=== PATIENT | male | born 1970 | race Caucasian/White ===

== ENCOUNTER 2016-10-06 11:40 | Emergency (ER) | payer OTHER ==
--- NOTE | ~2016-10-06 | CR63 ---
[facility] A Service of [facility] & [facility] RADIOLOGY TEXT RESULTS PATIENT: MARCELLA BARBOSA LOCATION: SED : 72 UNIT #: [id number] AGE: [address]: ANNE THURMAN SEX: M ORDER DR: [id number] [place] [id number] E MR#: [id number] Acc #: [id number] NAME: MARCELLA BARBOSA. : 1970 SEX: M STUDY DATE/TIME: 10/06/2016 12:19 UNIT: SED ROOM: STUDY DESCRIPTION: CR Chest 2 View Attending Physician: Anne Thurman Aprn Ordering Physician: Anne Thurman Aprn Primary Care Physician: No Primary Care Physician MEDICAL IMAGING REPORT This report is preliminary unless electronic signature is present. EXAM Chest, PA and lateral; 10/06/2016. HISTORY Shortness of breath and back pain beginning 1 day ago. Pain under left shoulder blade. FINDINGS The heart is normal in size. There is elevation of the right hemidiaphragm with atelectasis at the right lung base. Lungs are otherwise clear. There are no pleural effusions. IMPRESSION No active pulmonary disease. Dictated by... Kenji Azar M.D. THIS IS AN ELECTRONICALLY VERIFIED REPORT Kenji Azar M.D. at 10/07/2016 6:27 AM TRINIDAD/anjali TD: 10/06/2016 15:42 JOB #: [id number] MEDICAL IMAGING REPORT Page 1 of 1
--- NOTE | ~2016-10-06 | EKG ---
PATIENT: MARCELLA BARBOSA UNIT #: [id number] Ventricular Rate: 80 BPM Atrial Rate: 80 BPM P-R Interval: 124 ms QRS Duration: 86 ms Q-T Interval: 354 ms QTC Calculation(Bezet): 408 ms P [place]: 66 degrees Calculated R [place]: 54 degrees Calculated T [place]: 27 degrees Diagnosis Line: Normal sinus rhythm Diagnosis Line: Normal ECG Diagnosis Line: No previous ECGs available Diagnosis Line: Confirmed by SON DOS SANTOS MD ([id number]) on Diagnosis Line: 10/09/2016 8:36:05 AM INTERPRETING MD: LEVON DUEÑAS
[~2016-10-06 11:40] MED LIST: ANIMAL SHAPES1 EAC2 PO; [UNRECOGNIZED DRUG - REMARK]
== END 2016-10-06 12:46 | disposition home or self-care (01) ==
LOC: SED 11:40
DX: S29.012A Strain of muscle and tendon of back wall of thorax, initial encounter (principal); X58.XXXA Exposure to other specified factors, initial encounter; Y93.01 Activity, walking, marching and hiking; Y92.89 Other specified places as the place of occurrence of the external cause; Y99.0 Civilian activity done for income or pay; Z87.891 Personal history of nicotine dependence
CPT/HCPCS: 71020; 93005; 96372; 99283; J1885